=== PATIENT | female | born 1970 | race African-American/Black ===

== ENCOUNTER → 2020-02-27 | Outpatient (CLI) | payer BC ==
--- NOTE | 2020-02-27 16:05 | US ---
EXAMINATION TYPE: US pelvic complete DATE OF EXAM: 02/27/2020 COMPARISON: NONE CLINICAL HISTORY: N92.1 Intermenstrual bleeding, irregular. Irregular heavy cycles, 3, para 3 , history of tubal ligation. TECHNIQUE: . Transabdominal sonographic images of the pelvis were acquired. Date of LMP: 02/03/2020 EXAM MEASUREMENTS: Uterus: 8.9 x 4.5 x 4.4 cm Endometrial Stripe: 0.8 cm Right Ovary: 2.9 x 1.9 x 1.5 cm Left Ovary: 2.4 x 1.4 x 2.0 cm 1. Uterus: anteverted 2. Endometrium: appears wnl 3. Right Ovary: wnl 4. Left Ovary: wnl 5. Bilateral Adnexa: wnl 6. Posterior cul-de-sac: small amount of free fluid IMPRESSION: Minimal free fluid in the pelvis. Endometrial stripe thickness 8 to 9 mm
== END | disposition home or self-care (01) ==
LOC: RADUSWWP 15:37
PROVIDERS: ATTEND Family Medicine
DX: N92.1 Excessive and frequent menstruation with irregular cycle (principal)
CPT/HCPCS: 76856

== ENCOUNTER → 2020-07-13 | Outpatient (CLI) | payer BC ==
--- NOTE | 2020-07-15 14:05 | MM ---
Reason for exam: screening (asymptomatic). Last mammogram was performed 22 years and 10 months ago. History: Family history of breast cancer. Excisional biopsy of the left breast. Physical Findings: A clinical breast exam by your physician is recommended on an annual basis and results should be correlated with mammographic findings. MG Screening Mammo w CAD Bilateral CC and MLO view(s) were taken. No prior studies available for comparison. There are scattered fibroglandular densities. There is no discrete abnormality. ASSESSMENT: Benign, BI-RAD 2 RECOMMENDATION: Routine screening mammogram of both breasts in 1 year.
== END | disposition home or self-care (01) ==
LOC: RADMAMWWP 07:57
PROVIDERS: ATTEND Family Medicine
DX: Z12.31 Encounter for screening mammogram for malignant neoplasm of breast (principal)
CPT/HCPCS: 77067

== ENCOUNTER → 2022-10-25 | Outpatient (CLI) | payer BC ==
--- NOTE | 2022-10-25 12:05 | BD ---
EXAMINATION TYPE: Axial Bone Density DATE OF EXAM: 10/25/2022 CLINICAL HISTORY: 52 years old Female. ICD-10 CODE: N95.9 POST MENOPAUSAL PROBLEMS Height: 66 Weight: 187.5 FRAX RISK QUESTIONS: Alcohol (3 or more units per day): no Family History (Parent hip fracture): no Glucocorticoids (More than 3mos): no (Ex: prednisone, prednisolone, methylprednisolone, dexamethasone, and hydrocortisone). History of Fracture in Adulthood: no Secondary Osteoporosis: 1. Type 1 Diabetes: no 2. Hyperthyroidism: no 3. Menopause before 45: no 4. Malnutrition: no 5. Chronic liver disease: no Rheumatoid Arthritis: no Current Tobacco Use: yes RISK FACTORS HISTORY OF: Surgery to Spine/Hip(right/left)/Wrist (right/left): no Family History of Osteoporosis: no Active: no Diet low in dairy products/other sources of calcium: yes If Premenopausal, do you have irregular periods: yes Lost more than 2 inches in height since high school: no MEDICATIONS: Additional History: EXAM MEASUREMENTS: Bone mineral densitometry was performed using the [employer] System. Bone mineral density as measured about the Lumbar spine is: ----- L1-L4(G/cm2): 1.559 T Score Values are as follows: ----- L1: 2.7 ----- L2: 3.3 ----- L3: 2.6 ----- L4: 3.7 ----- L1-L4: 3.2 Z Score Values are as follows: ----- L1: 1.9 ----- L2: 2.4 ----- L3: 1.7 ----- L4: 2.9 ----- L1-L4: 2.3 Bone mineral density : baseline Bone mineral density about the R hip (g/cm2): 1.125 Bone mineral density about the L hip (g/cm2): 1.238 T Score values are as follows: -----R Neck: 1.1 -----L Neck: 0.6 -----R Total: 1.7 -----L Total: 1.8 Z Score values are as follows: -----R Neck: 0.6 -----L Neck: 0.3 -----R Total: 0.8 -----L Total: 0.9 Bone mineral density : baseline FRAX%s: The graph provided illustrates a 1.5% chance for a major osteoporotic fx and a 0.0% chance fo r the hips probability for fx in 10 years time. IMPRESSION: Normal (Values between +1 and -1 indicate normal bone mass). Consider repeating this study in 5 year s or sooner if there is some new clinical indication. NOTE: T-SCORE=SD OF THE YOUNG ADULT MEAN.
== END | disposition home or self-care (01) ==
LOC: RADBDWWP 07:49
PROVIDERS: ATTEND Student in an Organized Health Care Education/Training Program
DX: N95.9 Unspecified menopausal and perimenopausal disorder (principal)
CPT/HCPCS: 77080

== ENCOUNTER → 2022-11-11 | Outpatient (CLI) | payer BC ==
--- NOTE | 2022-11-14 07:43 | MM ---
Reason for Exam: Screening (asymptomatic). Last mammogram was performed 2 year(s) and 4 month(s) ago. Patient History: Menarche at age 14. First Full-Term at age 17. Excisional Biopsy on the Left side. Maternal unspecified had breast cancer. Risk Values: Monique 5 year model risk: 1.2%. NCI Lifetime model risk: 8.5%. Prior Study Comparison: 09/25/1997 Bilateral Diagnostic Mammogram, [facility]. 07/13/2020 Bilateral Screening Mammogram, [facility]. Tissue Density: There are scattered fibroglandular densities. Findings: Analyzed By CAD. There is no suspicious group of microcalcifications or new suspicious mass in either breast. Overall Assessment: Negative, BI-RAD 1 Management: Screening Mammogram of both breasts in [address] [facility] will attempt to contact patient to return for supplemental views and ultrasound if indicated. Patient should continue monthly self-breast exams. A clinical breast exam by your physician is recommended on an annual basis. This exam should not preclude additional follow-up of suspicious palpable abnormalities. Note on Monique scores and lifetime risk: 1. A Monique score greater than 3% is considered moderate risk. If this is the case, consider specialist referral to assess eligibility for a risk reducing agent. 2. If overall lifetime risk for the development of breast cancer is 20% or higher, the patient may qualify for future screening with alternating mammogram and breast MRI. Electronically signed and approved by: Star Mckenzie DO
== END | disposition home or self-care (01) ==
LOC: RADMAMWWP 07:13
PROVIDERS: ATTEND Student in an Organized Health Care Education/Training Program
DX: Z12.31 Encounter for screening mammogram for malignant neoplasm of breast (principal); Z80.3 Family history of malignant neoplasm of breast
CPT/HCPCS: 77067